=== PATIENT | male | born 1955 | race Caucasian/White ===

== ENCOUNTER 2017-06-29 06:44 | Inpatient (IN) ==
[2017-06-29] MEDS ORDERED: ASPIRIN 325 MG TABLET PO STA (07:01)
[2017-06-29] MEDS ORDERED: ASPIRIN 325 MG TABLET ONE (07:02)
[2017-06-29] MEDS ORDERED: ONDANSETRON 4 MG/2 ML VIAL IV STA (07:17)
[2017-06-29] MEDS ORDERED: ALUM/MAG/SIMETH/LIDO VISC 1:1 30 ML BOTTLE PO STA (07:17)
[2017-06-29] MEDS ORDERED: ENOXAPARIN 80 MG/0.8 ML SYRINGE SUBCUT STA (07:17)
[2017-06-29] MEDS ORDERED: NITROGLYCERIN 2% OINT 1 INCH/GM PACK TOP STA (07:17)
[2017-06-29] MEDS ORDERED: MORPHINE 2 MG/1 ML SYRINGE IV PRN (07:18)
[2017-06-29 07:19] LABS: Hematocrit 40.2 VOL% (42.0-52.0); Hemoglobin 14.1 GM/DL (14.0-18.0); Red Blood Count 4.66 MC/CUMM (3.8-5.5); White Blood Count 11.6 T/CUMM (4-12)
[2017-06-29 07:20] LABS: Basophils # 0.1 10*3/uL (0.0-0.2); Basophils % 0.6 % (0.0-0.8); Eosinophils # 0.4 10*3/uL (0.0-0.87); Eosinophils % 3.4 % (0.00-10.9); Immature Granulocytes % 0.5 %; Immature Granulocytes Absolute 0.06 #; Lymphocytes # 2.3 10*3/uL (1.4-4.0); Lymphocytes % 19.4 % (21.2-54.2); Mean Corpuscular HGB Conc 35.1 GM/DL (32-36); Mean Corpuscular Hemoglobin 30 PG (27-34); Mean Corpuscular Volume 86.3 FL (87-102); Mean Platelet Volume 10.1 FL (9.6-12.0); Monocytes # 1.1 10*3/uL (0.11-0.8); Monocytes % 9.5 % (1.7-12.7); Neutrophils # 7.7 10*3/uL (1.4-7.4); Neutrophils % 66.6 % (38.7-73.9); Platelet Count 274 T/CUMM (130-400); Red Cell Distribution Width 13.4 % (9.3-17.3)
[2017-06-29] MEDS ORDERED: NITROGLYCERIN 2% OINT 1 INCH/GM PACK TOP ONE (07:20)
[2017-06-29] MEDS ORDERED: ENOXAPARIN 80 MG/0.8 ML SYRINGE SUBCUT ONE (07:20)
[2017-06-29] MEDS ORDERED: ONDANSETRON 4 MG/2 ML VIAL ONE (07:21)
[2017-06-29] MEDS ORDERED: ALUM/MAG/SIMETH/LIDO VISC 1:1 30 ML BOTTLE PO ONE (07:21)
--- NOTE | 2017-06-29 07:24 | Emergency Department Note ---
Joaquim Jeffery Hilary, am scribing for, and in the presence of, Fer Logan MD 07: 19. oDreen Jeffery James D, MD, personally performed the services described in this documentation, ascribed by Chrissy March in my presence, and it is both accurate and complete 723 . Arrival - Arrival Chief Complaint: Chest Pain Stated Complaint: chest pain ED Nursing Triage Note: amb to er with c/o chest pain since wednesday. states recently hurt his back this past wednesday and since wednesday he has been having chest pain that has been coming and going. Mode of Arrival: Ambulatory Limitations: No Limitations Source: Patient, RN Notes Reviewed Time Seen by Provider: 06/29/17 07:09 - History of Present Illness HPI Narrative: Pt is a 61 y/o white male presenting to the ED with c/o chest pain which onset 2 days ago. Pt states that he hurt his back a week ago and for 2 days his chest has been hurting intermittently. The pain radiates up to the right shoulder. No other complaints or problems stated in the ED. Onset (ago): day(s) Consistency: intermittent Severity: moderate Severity scale (1-10): 2 Quality: sharp Allergies/Adverse Reactions: Allergies Allergy/AdvReac Type Severity Reaction Status Date / Time No Known Allergies Allergy Unverified 06/29/17 06:53 Home Medications: Home Medications Medication Instructions Recorded Confirmed Type Allopurinol 150 mg PO DAILY 06/29/17 06/29/17 History Review of System - Review of System 12 point system: reviewed and no additional remarkable complaints except as stated - Review of System Constitutional: Absent: diaphoresis, fever Respiratory: Absent: respiratory distress Cardiovascular: Present: chest pain Gastrointestinal: Present: nausea. Absent: vomiting Medical,Surgical,& Family Hx - Social History Smoking Status: Never smoker Frequency of Alcohol Use: None Type of Drug Use: None Exam Physical Examination: GENERAL: This is a well-nourished, well-developed male in no apparent distress. VITAL SIGNS: Temperature: 97.8 Pulse: 51 Respiratory: 18 Blood Pressure: 112/ 71 O2Sat: 95 HEENT: Head is normocephalic and atraumatic. Pupils are equally round and reactive to light. Extraocular movement are intact. Oropharynx is benign with moist mucous membranes. NECK: Neck is soft and supple without tenderness. There are no masses. There is no lymphadenopathy. LUNGS: Lungs are clear to auscultation bilaterally. Chest rises symmetrically. There is no chest wall tenderness. CV: Heart is bradycardic rate and rhythm without murmurs, rubs, or gallops. ABDOMEN: Abdomen is soft, non-tender to palpation. There are no abnormal masses palpated. There is no organomegaly. Bowel sounds are present and active. SKIN: Skin is warm and dry. No rash. EXTREMITIES: Patient has full range of motion without tenderness. There is no pedal edema. NEUROLOGIC: Awake, alert, and oriented x4. Cranial nerves II through XII are grossly intact. There are no motorsensory deficits. PSYCHIATRIC: Normal affect. Normal mood. Vital Signs: Vital Signs Temperature 97.8 F 06/29/17 06:48 Pulse Rate 41 L 06/29/17 07:45 Respiratory Rate 15 06/29/17 07:45 Blood Pressure 112/75 06/29/17 07:45 O2 Sat by Pulse Oximetry 97 06/29/17 07:45 Course - Consultations Consultation #1: Discussed with hospitalist. Patient will be admitted to their service. Time: 08:09 Results - Labs CBC & BMP: 06/29/17 07:16 06/29/17 07:16 Lab Results: I have reviewed the patients labs Labs: Laboratory Tests 06/29/17 07:16 WBC 11.6 RBC 4.66 Hgb 14.1 Hct 40.2 L MCV 86.3 L Lymph % (Auto) 19.4 L Neut # (Auto) 7.7 H [place] # (Auto) 1.1 H Laboratory Tests 06/29/17 07:16 Sodium 140 Potassium 4.0 Chloride 107 Carbon Dioxide 27 Total Creatine Kinase 843 H Albumin/Globulin Ratio 1.0 L Laboratory Tests 06/29/17 06/29/17 07:16 07:16 Troponin I < 0.015 B-Natriuretic Peptide 69 - EKG EKG results: interpreted by ERMD - Impressions EKG: Sinus bradycardia with a rate of 47, nonspecific ST-T wave changes, normal axis. - Diagnostic Findings Procedure: Chest x-ray: image reviewed by me, report reviewed by me (Basilar hypoaeration) Disposition Clinical Impression: Chest pain, Family history of coronary artery disease Case discussed with: patient, patient's family Disposition: Still a Patient Condition: Stable
[2017-06-29 07:31] LABS: PT Patient Result 10.6 SECS; Partial Thromboplastin Time 27.4 SECS (0-40)
[2017-06-29 07:48] LABS: Alanine Aminotransferase 28 U/L (16-61); Albumin 3.6 G/DL (3.4-5.0); Alkaline Phosphatase 108 U/L (45-117); Aspartate Amino Transferase 26 U/L (0-37); Blood Urea Nitrogen 15 MG/DL (7-18); Glucose 80 MG/DL (74-106); Magnesium 2.3 MG/DL (1.8-2.4); Osmolality,Calculated 278.4 MOS/KG (273-304); Sodium 140 MMOL/L (136-145); Total Protein 6.9 G/DL (6.4-8.3)
--- NOTE | 2017-06-29 07:48 | XRay Report ---
2 view chest. Indication: Chest pain. Comparison: August 01, 2014. Mild hypoaeration at the bases. Normal pulmonary vasculature. The heart size is normal. The mediastinal contours are unremarkable. No consolidation, pneumothorax, or pleural effusion. Mild degenerative changes of the shoulders and spinal column. Impression: Basilar hypoaeration. PROCEDURE INTERPRETED AT [facility] DEPARTMENT OF RADIOLOGY Final Report Signed by: Dr. Yamile Bentley
[2017-06-29] MEDS ORDERED: MAGNESIUM SULF RIDER 4 GM in PREMIX 1 EACH IV PRN (09:11)
[2017-06-29] MEDS ORDERED: ZALEPLON 5 MG CAPSULE PO PRN (09:11)
[2017-06-29] MEDS ORDERED: ACETAMINOPHEN 325 MG TABLET PO PRN (09:11)
[2017-06-29] MEDS ORDERED: POTASSIUM CHLORIDE 20 MEQ TABLET PO PRN (09:11)
[2017-06-29] MEDS ORDERED: MAGNESIUM SULF RIDER 2 GM in PREMIX 1 EACH IV PRN (09:11)
[2017-06-29 09:52] LABS: Risk Ratio 2.67; VLDL CHOLESTEROL 19.4 MG/DL
--- NOTE | 2017-06-29 10:10 | Hospitalist History & Physical ---
<Kaitlin Lakeda - Last Filed: 06/29/17 10:04> Assessment and Plan (1) hand candle dipper Status: Acute Assessment and plan: The patient reports that he is a daily hypo dipper. Spoke with patient in great detail regarding the need to refrain from this type of nicotine consumption. Patient verbalized understanding of instructions however verbalizes no intent to quit at this time. Nicotine patch has been ordered as needed during the clinical encounter Current Visit: Yes (2) Chest pain Status: Acute Assessment and plan: The patient reported the onset of chest pain 2 days prior to presentation which was isolated to his center chest however, he reported radiation up to the right shoulder. The patient has multiple risk factors for the development of cardiovascular disease. As a result of these risk factors, the patient warrants a full cardiac workup. We will obtain a lipid panel, serial cardiac enzymes, echocardiogram, and consult cardiology. Current Visit: Yes (3) Family history of coronary artery disease Status: Acute Assessment and plan: The patient reported a strong family history of coronary artery disease and sudden cardiac within his immediate family. In addition, the patient reported current nicotine use. He presented to the ED with chest pain originating at the center of chest with radiation down the right arm. As result of these factors, we will perform a full cardiac workup and consult cardiology. Current Visit: Yes History of Present Illness Chief complaint: Chest pain History of present illness: This is a 61-year-old male that presented to the ED at [facility] this morning for the evaluation of chest pain. The patient has a medical history significant for gouty arthritis and nicotine addiction. Patient has a surgical history significant for appendectomy and multiple orthopedic procedures involving his left lower extremity and right shoulder. The patient reported the onset of symptoms 2 days prior to presentation. He reported that he hurt his back a week ago however, has been experiencing intermittent chest pain for the last 2 days. He reported that the pain originated in the center of his chest radiating to his right shoulder. In addition he reported episodes of nausea however, denies shortness of breath, syncope, vomiting, visual disturbances, or weakness. He reported that the pain became intense earlier this morning awakening him from his sleep. He made attempts to go back to sleep however he was unsuccessful. At the insistence of his , he decided to present to the ED for further evaluation. The patient was seen at the time of ED presentation. The patient was noted to be bradycardic with a heart rate as low as 41. Labs were obtained which were remarkable for hematocrit of 40.2 and total creatine kinase at 843. Troponin was noted at less than 0.015 and BNP was noted at 69. Chest x-ray reported mild degenerative changes of the shoulders and spinal column and basilar hypoaeration was noted. After brief discussion with both Dr. Logan and Dr. Garay, the patient will be admitted to the hospitalist service for continuation of care. At the time of interview, the patient reported a significant family history of cardiovascular disease. He reported that several members of his immediate family had severe cardiovascular disease. Due to his current state of bradycardia, documented nicotine use, and significant family risk factors a cardiology consultation has been requested for further evaluation. The patient's home medications have been reviewed and reconciled. CODE STATUS discussed; patient is FULL CODE. Home Medications Medication Instructions Recorded Confirmed Type Allopurinol 150 mg PO DAILY 06/29/17 06/29/17 History Allergies Allergy/AdvReac Type Severity Reaction Status Date / Time No Known Allergies Allergy Unverified 06/29/17 06:53 Medical,Surgical,& Family Hx - Medical History Musculoskeletal: History of: Musculoskeletal Problems (Gouty arthritis) - Surgical History Abdominal Surgeries: Surgical HX of: Appendectomy Orthopedic Surgeries: Surgical HX of;: Orthopedic Surgery - Family History Family History: Reports;: Family Heart Disease - Social History Smoking Status: Current every day smoker (The patient reports that he is a daily dipper of tobacco.) Have you smoked in the last 12 months: No (The patient dips tobacco daily) Frequency of Alcohol Use: None Type of Drug Use: None Marital Status: Lives With:: Spouse Functional capacity: independent ambulation 12 point system: reviewed and no additional remarkable complaints except as stated Exam - Constitutional Vitals: Period Temp Pulse Resp BP Sys/Espino Pulse Ox Last 24 Hr 97.8 F-97.8 F 41-51 15-18 103-118/71-83 95-97 General appearance: normal weight, no acute distress - Head Head exam: Present: normal inspection, normocephalic, atraumatic - Eye Eye exam: Present: EOMI. Absent: conjunctival injection Pupils: Present: AISHA, normal accommodation - ENT ENT exam: Present: normal exam. Absent: normal external ear exam, normal oropharynx - Neck Neck exam: Present: normal inspection. Absent: lymphadenopathy, meningismus, thyromegaly - Respiratory Respiratory exam: Present: clear to auscultation bilaterally. Absent: rales, rhonchi, stridor, wheezes - Cardiovascular Cardiovascular exam: Present: bradycardia, tachycardia. Absent: carotid bruit, diastolic murmur, gallop, JVD, regular rate and rhythm, rubs, systolic murmur - GI/Abdominal GI/Abdominal exam: Present: normal bowel sounds, soft - Extremities Exam Extremities exam: Present: normal inspection, normal capillary refill, full ROM , edema - Back Exam Back exam: Present: normal inspection - Neurological Exam Neurological exam: Present: alert, oriented X3, CN II-XII intact - Psychiatric Psychiatric exam: Present: normal affect, normal mood - Skin Skin exam: Present: normal color, warm, dry Results - Labs CBC & BMP: 06/29/17 07:16 06/29/17 07:16 Lab Results: I have reviewed the past 24 hour labs <Nette Garay - Last Filed: 06/29/17 15:09> History of Present Illness History of present illness: Mr. Dubois is a 61 year old male with a positive family history for CAD presents with atypical chest pain. CT chest was negative for PE. Cardiology is following and they want to stress him in am. 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 Exam - Constitutional Vitals: Period Temp Pulse Resp BP Sys/Espino Pulse Ox Last 24 Hr 97.2 F-97.8 F 41-51 15-20 103-118/71-83 95-97 Results - Labs CBC & BMP: 06/29/17 07:16 06/29/17 07:16
[2017-06-29] MEDS: SODIUM CHLORIDE 0.45% 1,000 ML IV SCH (10:15)
--- NOTE | 2017-06-29 13:11 | Cardiology Consult Note ---
Ann Jeffery April RN, am scribing for, and in the presence of, Tabitha Jamison MD 13:10. 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 Manuel Mr. Dubois is a 61 year old male who was seen by Dr. Manuel. He has no known cardiac history. He states he saw Dr. Manuel for chest pain in the past and has continued to follow-up with him. He denies ever having had a heart catheterization. He had a negative GXT with Dr. Manuel in August 2014. He has a history of gout and kidney stones. Surgical history includes surgical procedure on lower extremity, right rotator cuff, appendectomy, tonsillectomy. Family history is positive for hypertension and ND. He is a lifetime non-smoker, he does chew loosely tobacco. States he is very active and works outside a lot. Mr. Gallardo reports he strained his back last week and has been taking muscle relaxer for that. On June 27 he developed right-sided chest pain that did not radiate. He cannot describe the pain as being tight, sharp, or dull. Similar to a pressure. He said the pain would come and go and when it was at its worst he rated a 7 or 8 on a scale of 1-10. He denies any observed triggers or alleviators. He denies any shortness of breath or diaphoresis with this pain. He did say he had some slight nausea on Wednesday, but none since. The pain is not reproducible to deep breathing or palpation. He says the pain continued off and on over the next several days and this morning it was worse that he presented to the emergency department for further evaluation. Blood pressures have been stable since admission. EKG showed sinus bradycardia with heart rate of 47, heart rates have been in the 40s 50s during admission. He states his heart rate always runs low. He does not take medications to cause this. He was given GI cocktail, Zofran, and Nitro-Bid ointment in the emergency department. He was also started on aspirin and Lovenox. His troponin and CK-MB were negative on admission, his CK was elevated. At this time he is resting in bed with no complaints of chest pain, shortness of breath, dizziness, or palpitations. He says that his chest pain has eased up , after he was given morphine it has been completely relieved. Assessment/plan: 1. Chest pain-in general most of the characteristics are atypical of cardiac pain although this cannot be entirely excluded. There is no objective evidence of ischemia. He is currently in route to get a chest CT. If this is unrevealing, we will set him up for GXT nuclear stress test in the morning. 2. Bradycardia-this is asymptomatic. If he undergo stress testing in the morning, will evaluate his chronotropic competence with the treadmill. 3. 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 CC: Nette Garay MD - Home Medications and Allergies Home Medications: Home Medications Medication Instructions Recorded Confirmed Type Allopurinol 150 mg PO DAILY 06/29/17 06/29/17 History Allergies/Adverse Reactions: Allergies Allergy/AdvReac Type Severity Reaction Status Date / Time No Known Allergies Allergy Unverified 06/29/17 06:53 12 point system: reviewed and no additional remarkable complaints except as stated - Constitutional Constitutional: Present: as per HPI - Cardiovascular Cardiovascular: Present: chest pain at rest, chest pain with activity. Absent: diaphoresis, dyspnea, dyspnea on exertion, edema, radiating jaw, neck or arm pain, lightheadedness, orthopnea, palpitations - Respiratory Respiratory: Absent: cough, dyspnea, hemoptysis, dyspnea on exertion, wheezing - Gastrointestinal Gastrointestinal: Present: nausea. Absent: abdominal pain, constipation, diarrhea, hematemesis, hematochezia, melena, vomiting - Genitourinary Genitourinary: Absent: dysuria, hematuria - Musculoskeletal Musculoskeletal: Present: back pain, muscle weakness - Neurological Neurological: Absent: confusion, dizziness, frequent falls Medical,Surgical,& Family Hx - Medical History Renal: History of: Renal Problems (Kidney stones) Musculoskeletal: History of: Musculoskeletal Problems (Gouty arthritis) - Surgical History HEENT Surgeries: Surgical HX of: Tonsilectomy & Adenoidectomy Abdominal Surgeries: Surgical HX of: Appendectomy Orthopedic Surgeries: Surgical HX of;: Orthopedic Surgery (Right rotator cuff and lower extremity surgery) - Family History Family History: Reports;: Family Heart Disease, Family Hypertension - Social History Smoking Status: Never smoker (Chews loose leaf tobacco) Frequency of Alcohol Use: None Type of Drug Use: None Marital Status: Lives With:: Spouse Functional capacity: independent ambulation Physical Examination Vital Signs Temp Pulse Resp BP Pulse Ox 97.8 F 51 L 18 112/71 95 06/29/17 06:48 06/29/17 06:48 06/29/17 06:48 06/29/17 06:48 06/29/17 06:48 General: Present: Appears Well, No Apparent Distress HEENT: Present: PERRL, Mucus Membranes Moist Neck: Present: Supple Neck, Midline Trachea, No Bruit Cardiac: Present: Regular Rhythm, No Murmur, Bradycardia Lungs: Present: Normal Exam, Normal Breath Sounds, No Wheeze, Rales, Rhonchi Neuro: Absent: Resting Tremor, Essential Tremor Abdomen: Present: Soft, Active Bowel Sounds, Non-Tender. Absent: Distended Skin: Present: Clear. Absent: Rash, Suspicious Lesions Musculoskeletal: Present: No Fluid Collection, No Pain Gait: Present: Normal Gait Extremities: Present: Normal Gait, No Edema, Normal Upper Extr. Pulses, Normal Lower Extr. Pulses Result/EKG - Labs CBC & BMP: 06/29/17 07:16 06/29/17 07:16 Lab Results: I have reviewed the past 24 hour labs Labs: Laboratory Results - last 24 hr 06/29/17 06/29/17 06/29/17 07:05 07:16 07:16 WBC RBC Hgb Hct MCV MCH MCHC RDW Plt Count MPV Neut % (Auto) Lymph % (Auto) Saline % (Auto) Eos % (Auto) Baso % (Auto) Neut # (Auto) Lymph # (Auto) Saline # (Auto) Eos # (Auto) Baso # (Auto) Immature Gran % Nucleated RBC % Immature Gran # Nucleated RBCs # Immature Plt Fraction INR 1.0 PT Patient/Control Mix 10.6 Circ Anticoag PTT 27.4 Sodium 140 Potassium 4.0 Chloride 107 Carbon Dioxide 27 Anion Gap 10.0 BUN 15 Creatinine 1.30 GFR Calculation 68 BUN/Creatinine Ratio 11.00 Glucose 80 Calculated Osmolality 278.4 Calcium 9.0 Magnesium 2.3 Total Bilirubin 0.50 AST 26 ALT 28 Alkaline Phosphatase 108 Total Creatine Kinase 843 H CK-MB (CK-2) < 1.0 Troponin I B-Natriuretic Peptide Total Protein 6.9 Albumin 3.6 Globulin 3.3 Albumin/Globulin Ratio 1.0 L Triglycerides 97 Cholesterol 139 LDL Cholesterol 75.0 VLDL Cholesterol 19.4 HDL Cholesterol 52 Heart Disease Risk Ratio 2.67 Lipase 252.0 06/29/17 06/29/17 06/29/17 07:16 07:16 07:16 WBC 11.6 RBC 4.66 Hgb 14.1 Hct 40.2 L MCV 86.3 L MCH 30 MCHC 35.1 RDW 13.4 Plt Count 274 MPV 10.1 Neut % (Auto) 66.6 Lymph % (Auto) 19.4 L Saline % (Auto) 9.5 Eos % (Auto) 3.4 Baso % (Auto) 0.6 Neut # (Auto) 7.7 H Lymph # (Auto) 2.3 Saline # (Auto) 1.1 H Eos # (Auto) 0.4 Baso # (Auto) 0.1 Immature Gran % 0.5 Nucleated RBC % 0.0 Immature Gran # 0.06 Nucleated RBCs # 0.00 Immature Plt Fraction 0.0 INR PT Patient/Control Mix Circ Anticoag PTT Sodium Potassium Chloride Carbon Dioxide Anion Gap BUN Creatinine GFR Calculation BUN/Creatinine Ratio Glucose Calculated Osmolality Calcium Magnesium Total Bilirubin AST ALT Alkaline Phosphatase Total Creatine Kinase CK-MB (CK-2) Troponin I < 0.015 B-Natriuretic Peptide 69 Total Protein Albumin Globulin Albumin/Globulin Ratio Triglycerides Cholesterol LDL Cholesterol VLDL Cholesterol HDL Cholesterol Heart Disease Risk Ratio Lipase - Diagnostic Findings Procedure: Chest x-ray: report reviewed by me - EKG EKG results: interpreted by me EKG shows: bradycardia, sinus rhythm I, Tabitha Jamison MD, personally performed the services described in this documentation, ascribed by Lauren Juarez RN in my presence, and it is both accurate and complete 311 .
--- NOTE | 2017-06-29 13:34 | CT Report ---
CT of the chest with intravenous contrast, PE protocol. 80 cc Omni 350. Axial images were obtained with sagittal and coronal 2-D and 3-D reconstructions. No prior studies. Indication: Chest pain. The thyroid gland is normal in size. There is no supraclavicular or axillary lymphadenopathy. There is no evidence of pulmonary thromboembolism. The thoracic aorta is of normal caliber. The heart is borderline enlarged. There is no hilar or mediastinal lymphadenopathy. The lung [place] are clear. Mild degenerative changes of the spinal column. Impression: No evidence of pulmonary thromboembolism. The CT exam was performed using one or more of the following dose reduction techniques: Automated exposure control, adjustment of the mA and/or kV according to patient size, or use of iterative reconstruction technique. PROCEDURE INTERPRETED AT [facility] DEPARTMENT OF RADIOLOGY Final Report Signed by: Dr. Yamile Bentley
[2017-06-29] MEDS ORDERED: ENOXAPARIN 40 MG/0.4 ML SYRINGE SUBCUT SCH (15:30)
[2017-06-29 15:47] LABS: Free T4 (Free Thyroxine) 1.03 NG/DL (0.76-1.46); Thyroid Stimulating Hormone 2.23 uIU/ml (0.358-3.74)
[2017-06-29 19:18] LABS: Apearance,Urine CLEAR (Clear); Bilirubin,Urine Negative (Negative); Blood, Urine Moderate mg/dL (Negative); Glucose,Urine (UA) Negative (Negative); Ketones,Urine Negative (Negative); Nitrite,Urine Negative (Negative); Protein,Urine Negative; RBC,Urine 4 /HPF (0-4); Urine Color Colorless (Yellow); Urine Specific Gravity 1.009 (1.001-1.035); Urine Urobilinogen < 2.0 EU/DL (0.2-1.0); WBC,Urine 1 /HPF (0-6)
[2017-06-29] MEDS: FAMOTIDINE 20 MG TABLET PO SCH (21:24)
[2017-06-30] MEDS: SODIUM CHLORIDE 0.45% 1,000 ML IV SCH ×2 (03:34→13:42)
--- NOTE | 2017-06-30 07:27 | EKG Report ---
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
[2017-06-30] MEDS ORDERED: ASPIRIN EC 81 MG TABLET PO SCH (09:00)
--- NOTE | 2017-06-30 10:56 | Cardiology Progress Note ---
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 Dubois is a 61 year old male who has been previously seen by Dr. Manuel with no known cardiac history. Risk factors include: Hypertension, remote tobaccoism, family history of premature CAD. Negative GXT with Dr. Manuel in August 2014, has not required [facility]. Admitted June 29, 2017 with complaints of atypical chest pain. Troponin negative, EKG revealed early repolarization. Normally, patient is very active working a full-time job and works additionally 4-6 hours at home, usually outside, most days. He can perform these activities without complaints of anginal type symptoms. JUNE 30, 2017: NPO for stress testing this morning. Reports he slept well last evening, denies chest pain, heaviness or tightness. Cardiac biomarkers have remained negative. CPK is elevated though not his troponin or CK-MB, indicating possible muscle strain, injury. EKG is unchanged, stable. LDL 75. CT chest reveals no evidence of pulmonary thromboembolism. ASSESSMENT/PLAN: 1. ATYPICAL CHEST PAIN -troponin remains negative, EKG stable. Currently scheduled for stress testing this morning. May be related to muscle strain as he did a lot of recent heavy lifting, CPK is elevated. 2. BRADYCARDIA- stable. Chronotropic competence to be evaluated with GXT this morning. 3. FAMILY HISTORY OF CAD - stress testing this morning 4. TOBACCO USE - the merits of tobacco cessation was thoroughly discussed for greater than 5 minutes 5. ELEVATED CPK - possible muscle strain. This is not SC. Exam (Progress Note) - Constitutional Vitals: Period Temp Pulse Resp BP Sys/Espino Pulse Ox Last 24 Hr 97.7 F-97.9 F 43-50 14-20 100-121/62-75 93-96 Exam: General: [Appears well with no apparent distress.] [Pleasant and cooperative. ] [Appears comfortable.] HEENT: [PERRL, normocephalic, atraumatic. Mucous membranes moist. No jaundice noted. Conjunctiva moist and clear, sclerae anicteric] Neck: No JVD/HJR, no thyromegaly or lymphadenopathy noted. No carotid bruit appreciated Cardiac: [Regular rate and rhythm.] [No murmur rub or gallop.] Lungs: [Clear to auscultation without accessory muscle use to assist the respiratory pattern.] Not requiring oxygen Abdomen: Soft, bowel sounds normoactive. Nontender and nondistended. No abdominal bruit or thrill noted. No masses noted. Musculoskeletal: No fluid collection. Decreased range of motion is noted. Extremities: No clubbing, cyanosis noted. [ No edema noted.] Upper extremity pulses 2+. Lower extremity pulses 2+. Capillary refill less than 3 seconds. Skin: No unusual lesions or rashes. No skin breakdown appreciated. Neuro: Awake, alert and oriented 3. Moves all extremities well without hemiparesis or paralysis. No essential tremor is appreciated. Result/EKG - Labs CBC & BMP: 06/29/17 07:16 06/29/17 07:16 Lab Results: I have reviewed the past 24 hour labs Labs: Laboratory Results - last 24 hr 06/29/17 06/29/17 06/29/17 10:27 12:58 14:48 Troponin I < 0.015 < 0.015 < 0.015 Free T4 TSH 3rd Generation Urine Color Urine Appearance Urine pH Ur Specific [place] Urine Protein Urine Glucose (UA) Urine Ketones Urine Blood Urine Nitrate Urine Bilirubin Urine Urobilinogen Urine Leukocytes Urine RBC Urine WBC Ur Culture Indicated? 06/29/17 06/29/17 14:48 18:45 Troponin I Free T4 1.03 TSH 3rd Generation 2.230 Urine Color Colorless Urine Appearance Clear Urine pH 7.0 Ur Specific [place] 1.009 Urine Protein Negative Urine Glucose (UA) Negative Urine Ketones Negative Urine Blood Moderate Urine Nitrate Negative Urine Bilirubin Negative Urine Urobilinogen < 2.0 H Urine Leukocytes Trace Urine RBC 4 Urine WBC 1 Ur Culture Indicated? Not indicated - Diagnostic Findings Procedure: Chest x-ray: report reviewed by me, CT - chest: report reviewed by me - EKG EKG results: interpreted by me EKG shows: bradycardia, sinus rhythm Quality Measures - Stroke Symptom Onset Unknown: No
[2017-06-30] MEDS: FAMOTIDINE 20 MG TABLET PO SCH (11:02)
--- NOTE | 2017-06-30 11:02 | Event Note ---
Patient underwent Cardiolite stress testing this morning without difficulty. Achieved target heart rate easily. Initially, patient was bradycardic with a heart rate noted in 48 bpm. However, good chronotropic competence was noted with treadmill portion of stress test. Initial EKG, prior to stress test, revealed early repolarization in inferior leads. The elevation resolved with exercise. V5V6 revealed 1-[address] depression with exertion, resolved at rest. No complaints of chest pain, heaviness, tightness. Moderate dyspnea on exertion however good exercise tolerance. No arrhythmia noted. Blood pressure responded appropriately with exercise. Now, patient is being transitioned to next room for final nuclear scan. Dr. Jamison to read, interpreted and advise.
--- NOTE | 2017-06-30 13:12 | Discharge Summary ---
<Hector Lake - Last Filed: 06/30/17 13:09> Hospital Course - Hospital Course Hospital Course: This is a 61-year-old male that presented to the ED at [facility] on the morning of June 29, 2017 for the evaluation of chest pain. The patient has a medical history significant for gouty arthritis and nicotine addiction. Patient has a surgical history significant for appendectomy and multiple orthopedic procedures involving his left lower extremity and right shoulder. The patient reported the onset of symptoms 2 days prior to presentation. He reported that he hurt his back a week ago however, has been experiencing intermittent chest pain for the last 2 days. He reported that the pain originated in the center of his chest radiating to his right shoulder. In addition he reported episodes of nausea however, denies shortness of breath, syncope, vomiting, visual disturbances, or weakness. He reported that the pain became intense earlier this morning awakening him from his sleep. He made attempts to go back to sleep however he was unsuccessful. At the insistence of his , he decided to present to the ED for further evaluation. The patient was seen at the time of ED presentation. The patient was noted to be bradycardic with a heart rate as low as 41. Labs were obtained which were remarkable for hematocrit of 40.2 and total creatine kinase at 843. Troponin was noted at less than 0.015 and BNP was noted at 69. Chest x-ray reported mild degenerative changes of the shoulders and spinal column and basilar hypoaeration was noted. He was admitted to cardiac monitoring bed, serial Cardiac enzymes were negative. CT chest showed no PE. TSH was normal, Lipid profile was unremarkable.Due to the patient's current state of bradycardia, documented nicotine use, and significant family risk factors; a cardiology consultation was requested. A full cardiac workup was initiated at the time of admission. The patient was seen and evaluated by cardiology and recommendations were given. Earlier today , the patient underwent nuclear medicine myocardial perfusion scan which was essentially unremarkable for any acute cardiac abnormalities. The patient's condition is stable. He has not experienced any significant overnight events. Today, we feel that he is indeed appropriate for discharge to follow-up with his primary care physician and cardiology as directed.He is currently CP free, vitals stable, will be dcd home today. 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 (2) Chest pain Status: Resolved (3) Family history of coronary artery disease Status: Chronic Discharge Plan - Discharge Data Disposition: Disch To Home/Self Care - Discharge Medications New Acetaminophen Tab [Tylenol Tab] 650 mg PO Q4H PRN tablet PRN Reason: Temperature greater than 101F Continue Allopurinol 150 mg PO DAILY - Follow Up or Referral - Forms/Instructions Instructions: Coronary Artery Disease (DC), How to Stop Smoking (DC), Bradycardia (DC) Exam - Constitutional Vitals: Period Temp Pulse Resp BP Sys/Espino Pulse Ox Last 24 Hr 97.7 F-97.8 F 43-50 14-20 100-121/62-74 93-96 Discharge Results Procedures and tests throughout hospitalization: Pending Orders 06/30/17 04:00 NM carlos perf SPECT rest or str IN AM Labs on day of discharge: Labs from last 24 hours 06/29/17 06/29/17 06/29/17 18:45 14:48 14:48 Troponin I < 0.015 Free T4 1.03 TSH 3rd Generation 2.230 Urine Color Colorless Urine Appearance Clear Urine pH 7.0 Ur Specific [place] 1.009 Urine Protein Negative Urine Glucose (UA) Negative Urine Ketones Negative Urine Blood Moderate Urine Nitrate Negative Urine Bilirubin Negative Urine Urobilinogen < 2.0 H Urine Leukocytes Trace Urine RBC 4 Urine WBC 1 Ur Culture Indicated? Not indicated DS: Provider Date of admission: 06/29/17 08:33 Primary care physician: Dominick Bentley Attending physician on admission: Nette Garay MD Consults: 06/29/17 10:03 Consult to Physician [CONS] Routine Comment: CHEST PAIN Consulting Provider: Carline Yepez When should Consulting Provider be notified: Now Person Notified: ISABEL Date Notified: 06/29/17 Time Notified: 10:21 06/29/17 11:28 Consult to Pastoral Services [CONS] Routine Comment: Pastoral Screen: Declines Visit Pastoral Screen Source of Request: Other 06/29/17 11:42 Consult to Pastoral Services [CONS] Routine Comment: Pastoral Screen: Declines Visit Pastoral Screen Source of Request: Patient Discharging clinician: Hector Lake CNP <Nette Garay - Last Filed: 06/30/17 14:06> Hospital Course - Time spent with patient Time with patient DS: Greater than 30 minutes (Time spent greater than 35mins) Diagnosis - Discharge Diagnosis (1) Chest pain Status: Resolved (2) Family history of coronary artery disease Status: Chronic (3) rib stiffener and heel dipper Status: Chronic (4) Bradycardia Status: Chronic (5) Gout Status: Acute Discharge Plan - Discharge Data Condition at Discharge: Stable Discharge Diet: advance to your usual diet Activity: resume usual activities as tolerated
[2017-06-30 14:09] VITALS: BP 112/67
--- NOTE | 2017-06-30 15:23 | Nuclear Medicine Report ---
DATE: 06/30/2017 REFERRING: Tabitha Jamison MD INTERPRETING: Tabitha Jamison MD INDICATION: A 61-year-old white male with chest discomfort. PROCEDURE: The patient underwent exercise nuclear stress test per protocol. A 10 mCi of Technetium- 99 were injected for rest imaging. Subsequently, the patient was exercised per Skyler protocol and 30 mCi of Technetium-99 were injected for stress imaging. EKG interpretation was supervised and provided by practitioner Ashlyn, and reviewed by me. The patie nt achieved a maximum heart rate of 143 beats per minute (88% maximum predicted heart rate) and 9.1 M ETS. Blood pressure was 142/70. There were no significant arrhythmias. Upsloping ST depression occ urred in leads V5 to V6 that was nonspecific. The patient did not have any anginal complaints. SPECT images were obtained in the short axis, horizontal, vertical long axis with gating. Ejection f raction is 56%, end-diastolic volume 96 mL, end-systolic volume 42 mL, stroke volume is [address], there is moderate extent, mild intensity perfusion defect noted in the distal inferior wall and a pex. With stress imaging, there is inferior and apical defect persist, but improved. There is also a fixed small, mild mid anterior septal wall perfusion defect. IMPRESSION: 1. NORMAL LEFT VENTRICULAR SYSTOLIC FUNCTION. 2. INFERIOR AND APICAL PERFUSION DEFECT THAT IMPROVES WITH STRESS WHEN COMPARED TO REST, BUT IS FAIR LY FIXED. THERE IS ALSO A FIXED MID ANTEROSEPTAL WALL DEFECT. IN GENERAL, THESE ARE THOUGHT TO BE S ECONDARY TO ARTIFACT ATTENUATION. 3. NO GROSS NUCLEAR EVIDENCE OF REVERSIBLE ISCHEMIA. Procedure performed and interpreted at [facility] Department of Radiology.
== END 2017-06-30 14:40 | disposition home or self-care (01) | DRG 313 ==
LOC: N.ED 06:44 → N.EDINP 08:33 → N.5E 09:51
PROVIDERS: ADMIT Internal Medicine; ATTEND Internal Medicine